=== PATIENT | female | born 1980 | race Caucasian/White ===

== ENCOUNTER 2017-10-30 10:51 | Inpatient (IN) | payer OTHER ==
[2017-10-30] MEDS ORDERED: ALTEPLASE 2 MG VIAL IVP PRN (15:05)
[2017-10-30] MEDS ORDERED: diphenhydrAMINE 25 MG CAP PO PRN (15:12)
[2017-10-30] MEDS ORDERED: SENNOSIDES/DOCUSATE SODIUM TAB PO PRN (15:12)
[2017-10-30] MEDS ORDERED: QUEtiapine FUMARATE 25 MG TAB PO PRN (15:12)
[2017-10-30] MEDS ORDERED: SIMETHICONE 80 MG TAB CHEW PO PRN (15:12)
[2017-10-30] MEDS ORDERED: guaiFENesin 200 MG TAB PO PRN (15:12)
[2017-10-30] MEDS ORDERED: SODIUM CL NASAL 45 ML BTL NS PRN (15:12)
[2017-10-30] MEDS ORDERED: BIOTENE DRY MOUTH ORAL RINSE 237 ML BTL MM PRN ×2 (15:12→15:50)
--- NOTE | 2017-10-30 17:26 | GHP ---
[f rep st] HISTORY AND PHYSICAL POST ADMISSION PHYSICIAN EVALUATION AND REHABILITATION TREATMENT PLAN DATE OF ADMISSION: 10/30/2017 DATE OF EVALUATION: 10/30/2017. TIME OF EVALUATION: 1530. REFERRING FACILITY: [facility] IMPAIRMENT GROUP: [id number]. REFERRING PHYSICIAN: Dr. Barajas CONSULTING PHYSICIANS: She was seen by General Surgery, Palliative Care, Pulmonary Critical Care, Thoracic Surgery, Infectious Disease, Cardiac Surgery, Gastroenterology, Nephrology, Interventional Radiology, and Behavioral Health. REHABILITATION DIAGNOSIS: Debility status post respiratory failure and adult respiratory distress syndrome. ETIOLOGIC DIAGNOSIS: Debility (noncardiac, nonpulmonary). CLAIRE OF ONSET: 09/09/2017. DATE OF SURGERY: 09/09/2017. HISTORY OF PRESENT ILLNESS: This is a 37-year-old woman who was admitted to [facility] on 09/09/2017 with worsening respiratory symptoms for a week. She had acute respiratory failure with pneumonia and ARDS bilaterally in the lower lungs. She was positive for influenza B. she was taken to the intensive care unit and intubated and treated for shock. She continued to decompensate and was transferred to [facility] where she had ECMO. There, she remained in the ICU from 09/09 to 10/08 and then again from 10/09 to 10/21. She was treated for sepsis, extensive subcutaneous emphysema, acute kidney injury requiring dialysis, which has resolved, and necrotizing MRSA pneumonia. She had a thoracotomy on 09/18/2017. There were recurrent bilateral pneumothoraces requiring bilateral chest tubes, which were placed on 10/09/2017. She had a tracheostomy placed on 09/23/2017, and then she was decannulated on 10/21/2017. There was a PEG tube. The ECMO was discontinued on 09/21/2017. There was anemia and myopathy of critical illness. There was sinus tachycardia, which was treated with metoprolol. She had preexisting PTSD and had symptoms of anxiety and insomnia, for which there was a Behavioral Health consult. 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 She had an IV which infiltrated in the right upper extremity. It required debridement on 10/28/2017. STUDIES AND LABS IN THE HOSPITAL: She had many chest x-rays and chest CTs. Most recent chest CT on 10/28 showed a persistent moderate left pneumothorax which communicates with a complex multiloculated cavity in the anterior interior left hemithorax; not clear if it was pleural or lung in origin, but there was a suspected bronchopleural fistula. CT also showed a 10 cm loculated low-attenuation probable multiloculated fluid collection, which was stable or decreased in size, multifocal atelectasis and confluent opacities consistent with multifocal bronchiectasis and small cavities which were improving, and, finally, scattered ground-glass attenuation opacities which were also improving. MOST RECENT LABORATORY STUDIES: On 10/30/2017, she continued to have anemia with a hemoglobin of 7.9 and hematocrit of 25.4. Platelet count was 216. She did not have elevated white blood cell count. Last basic metabolic profile on 10/29/2017, showed slightly high sodium at 146, slightly low potassium at 3.1, an elevated CO2 at 30. Otherwise, renal function and electrolytes were overall unremarkable, but for a low creatinine at 0.57. OTHER LABS AND STUDIES: She was not iron deficient, and she had a high reticulocyte count on 10/18/2017. On 09/13/2017, her TSH was normal at 1.62. She had IgG and IgA tested on 10/06/2016, and these were normal. On 09/09, her sputum culture grew MRSA. On 10/01, bronchoalveolar lavage was positive for influenza B and MRSA. Blood cultures were negative. PRECAUTIONS: She has aspiration precautions. She has contact isolation precautions for MRSA. ACTIVE COMORBIDITIES: She has the active comorbidity of a tracheostomy which is healing, which is a tier 1 comorbidity. She has the tier 3 comorbidity of MRSA. PAST MEDICAL HISTORY: She has no history of any prior medical illnesses. PAST SURGICAL HISTORY: She has had C-sections x2. PRE-HOSPITAL MEDICATIONS: She was taking buspirone and bupropion. ADMISSION MEDICATIONS: 1. Acetaminophen 650 mg p.o. q.6 hours p.r.n. 2. Alteplase 2 mg IV push p.r.n. PICC line clogging. 3. Budesonide 0.5 mg inhalation twice daily. 4. Bupropion 225 mg p.o. twice daily. 5. Buspirone 30 mg p.o. daily. 6. Calcium carbonate 1000 mg p.o. daily. 7. Clonidine 0.05 mg p.o. at bedtime. 8. Collagenase to the right antecubital skin wound 1 application topical with dressing changes. 9. Diphenhydramine 25 mg p.o. q.8 hours p.r.n. itching. 10. Famotidine 20 mg p.o. twice daily p.r.n. heartburn. 11. Guaifenesin 200 mg p.o. q.4 hours p.r.n. cough. 12. Levalbuterol 1.25 mg inhalation three times daily. 13. Melatonin 9 mg p.o. at bedtime. 14. Metoprolol 12.5 mg p.o. twice daily. 15. Multivitamin 1 p.o. daily. 16. Oxycodone 5 mg p.o. q.4 hours p.r.n. 17. Quetiapine 100 mg p.o. at bedtime and 25 mg p.o. at bedtime p.r.n. insomnia. 18. Saliva substitute 15 mL four times daily p.r.n. dry mouth. 19. Senna/docusate 1 tab p.o. twice daily p.r.n. constipation. 20. Simethicone 80 mg p.o. q.6 hours p.r.n. gas or bloating. 21. Sodium chloride nasal spray p.r.n. dry nose. 22. Vancomycin 1 g IV q.12 hours. 23. Enoxaparin 40 mg subcutaneous daily. ALLERGIES: Listed to cefepime, clindamycin, and latex. PSYCHOSOCIAL HISTORY: She is . She lives with her . 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 There are stairs in the house. She has assistance from her parents, as well. FAMILY HISTORY: Noncontributory. REVIEW OF SYSTEMS: She has a cough. It is productive. It is intermittent. She does not feel dyspneic. She notes that her voice has changed and is softer than what it used to be. She still has a tracheostomy, though it is healing. She is not in pain. She sleeps well with her current medications. Sleep was disturbed for quite a while in the hospital due to multiple interruptions for cares, labs, etc. She has an improving appetite. She denies nausea, vomiting, constipation, or diarrhea. She denies dysuria or urinary frequency. She denies joint pain or joint swelling. She is not aware of skin rash or skin breakdown, though she has had some skin irritation from tape. She is in good spirits. She denies fevers or chills. Otherwise, a 10-point review of systems is negative. PHYSICAL EXAM: VITAL SIGNS: Blood pressure is 114/74, heart rate is 91, respiratory rate is 17, oxygenation is 99% on 3 L. Her weight is 67.8 kg for a body mass index of 26.5. GENERAL: This is a well-nourished, well-developed woman, sitting in a wheelchair, dressed in street clothes, cooperative, and in no acute distress. HEENT: Extraocular movements are intact. Pupils are equal , round, and reactive to light. Mucous membranes are moist. Dentition is in good condition. She has an uncrowded airway, Mallampati class 1. NECK: Supple. There is approximately half a centimeter tracheostomy with moderate amount of mucus on the dressing, and, occasionally, her exhalations happen through the tracheostomy, but not consistently. HEART: There is a regular rate and rhythm with no murmurs, rubs, or gallops. LUNGS: Overall clear to auscultation bilaterally, but she has few crackles in the left lower lobe. ABDOMEN: Soft, nontender, nondistended with normoactive bowel sounds and no hepatosplenomegaly. EXTREMITIES: There is no cyanosis, clubbing, or edema. NEUROLOGIC: She is alert and oriented x3. Cranial nerves 2-12 are grossly intact. There is no focal weakness. Sensation is intact to light touch. She is able to arise independently from the chair and maintains a slightly widened stance. Gait was not tested. CURRENT LEVEL OF FUNCTION per the pre-admission screen: Regarding diet, feeding , and swallowing, she was on a regular diet with thin liquids. She is independent with eating, and she had safe swallow strategies and precautions in place. Regarding grooming, she required supervision and voice cues, standing at the sink with modified independence. She needed assist for a hair clip on the back of her head. Dressing lower body required moderate assistance for shoes and socks. Toileting required minimal assistance and voice cues from a low toilet and the use of grab bars and contact guard assist for balance. Bed mobility required supervision and setup. Transfers were done with modified independence. She used a front-wheeled walker and a raised toilet seat. Balance required contact guard to minimal assist, and with dynamic balance changes, she required minimal to moderate assist. Endurance was fair. She needed frequent rest breaks and had increased oxygen need with activity. Regarding gait, she was able to ambulate 150 feet x2 with one seated rest. She was also able to ambulate 400 feet with minimal assist and no device. She was noted to have a reduced or absent heel strike and toe off. She had some loss of balance with turns. She was able to negotiate 2 steps with a hand rail. Regarding cognition, she was noted to need repetition for new learning. She was considered to be a high fall risk due to severely deconditioned state. IMPRESSION: This is a 37-year-old woman who has had a month and a half long hospitalization for complications of influenza B including adult respiratory distress syndrome and methicillin-resistant Staphylococcus aureus pneumonia. She required ventilation, for which she received a tracheostomy. She had ECMO for part of her hospital stay, but was eventually extubated and had sufficient recovery to be free of the ECMO. She continues to require approximately 3 L of oxygen at rest. She had renal failure and had dialysis for a period. She had pneumothoraces and continues to have a Heimlich valve for a persistent left pneumothorax and likely bronchopleural fistula. She had increased anxiety and insomnia and had the addition of quetiapine and melatonin for sleep. She had sepsis. She was eventually medically stabilized and is ready for inpatient rehabilitation to treat deficits to mobility, balance, and activities of daily living. She is to continue IV vancomycin until followup with Infectious Disease , Dr. Jett, as well as Thoracic Surgery, with followup scheduled for 2017. She is to have a CT scan of the chest prior to followup with Thoracic Surgery. Weekly CBC, CMP, CRP, and vancomycin trough are to be faxed to Dr. Jett of Infectious Disease at [phone]. Her goal is to complete a rehabilitation stay and then return home with her family and supportive services. For a safe discharge, it is expected that she will achieve independence with grooming, dressing, and transfers, and modified independence for bed mobility and ambulation with the least restrictive device. She may continue to require supervision for pain, bathing versus assistance depending on her ability to bathe with the pigtail catheter and Heimlich valve in her chest. She will be weaned as much as possible from oxygen depending on her progress at rest and with activity. Ideally, her wound will be healed at discharge. She will have therapy with Physical Therapy and Occupational Therapy for 90 minutes per day per discipline for 5-7 days of the week. Her expected duration of stay is 5-7 days. It is anticipated that upon discharge, she will continue to benefit from home health services including nursing, a nurse's aide, occupational therapy, and physical therapy. PLAN: 1. Debility following prolonged hospitalization. PT and OT to optimize her mobility and activities of daily living toward independence with grooming, dressing, and transfers, and modified independence for bed mobility, and ambulation with the least restrictive device. 2. MRSA pneumonia. She has contact isolation precautions. She will continue vancomycin with weekly vancomycin trough, as well as CBC and CMP to be faxed to Infectious Disease, Dr. Jett at [phone]. Will order the studies for Thursday , 11/02/2017. 3. Pneumothorax and possible bronchopleural fistula. She is to follow up with thoracic surgeon, Dr. Karri Landon with a chest CT prior to her appointment on 11/12/2017. 4. Tachycardia, likely due to deconditioning plus possibly a component of anemia. Heart rate at rest appears to be adequately controlled with low-dose metoprolol. Continue metoprolol with a goal of weaning and discontinuing as her conditioning improves. 5. Anemia of chronic disease/critical illness. Follow CBC as ordered out of hospital. She has not been iron deficient. Expect her to have considerable improvement in the anemia over time. 6. Anxiety with history of PTSD. Continue Wellbutrin and buspirone, as well as nighttime dosing of clonidine and quetiapine. 7. Right antecubital fossa wound due to infiltrating IV. Continue wound care as ordered out of the hospital. Consider Wound Care consult if there are any complications or if it is not healing as expected. 8. Status post respiratory failure. She is on budesonide, as well as levalbuterol inhalers, and these will be continued. 9. Prophylaxis. She is young, and she is ambulating greater than 150 feet. She is no longer critically ill. Enoxaparin was ordered among her discharge medications from the hospital, but this will not be continued as she appears to be low risk at present. She also has famotidine ordered on a p.r.n. basis, and she requested to continue this due to intermittent symptoms of dyspepsia. Follow-up: Thoracic surgeon Dr. Karri Landon on 11/12/2017, with chest CT prior to her appointment. Follow-up with Infectious Disease Dr. Jett. /[id number]/MODL MTDD
[2017-10-30] MEDS: LEVALBUTEROL 1.25 MG/3 ML DEYVIAL IH SCH ×2 (18:12→21:17)
[2017-10-30] MEDS: ACETAMINOPHEN 325 MG TAB PO PRN (18:39)
[2017-10-30] MEDS: FAMOTIDINE 20 MG TAB PO PRN (18:40)
[2017-10-30] MEDS ORDERED: QUEtiapine FUMARATE 100 MG TAB PO SCH (21:00)
[2017-10-30] MEDS ORDERED: NORMAL SALINE IV SCH (21:00)
[2017-10-30] MEDS ORDERED: VANCOMYCIN HCL IV SCH (21:00)
[2017-10-30] MEDS: MELATONIN 3 MG TAB PO SCH (21:15)
[2017-10-30] MEDS: QUEtiapine FUMARATE 25 MG TAB PO SCH (21:15)
[2017-10-30] MEDS: METOPROLOL TARTRATE 25 MG TAB PO SCH (21:16)
[2017-10-30] MEDS: VANCOMYCIN HCL/NORMAL SALINE 250 ML IV SCH (21:17)
[2017-10-30] MEDS: oxyCODONE IR 5 MG TAB PO PRN (21:31)
[2017-10-30] MEDS: BUDESONIDE 0.5 MG/2 ML AMPUL.NEB IH SCH (22:29)
[2017-10-30] MEDS: buPROPion 75 MG TAB PO SCH (22:29)
[2017-10-30] MEDS ORDERED: ONDANSETRON DISINTEGRATING 4 MG TAB PO PRN (23:58)
[2017-10-31] MEDS: ACETAMINOPHEN 325 MG TAB PO PRN ×2 (07:15→17:41)
[2017-10-31] MEDS: oxyCODONE IR 5 MG TAB PO PRN ×2 (07:16→17:41)
[2017-10-31] MEDS: LEVALBUTEROL 1.25 MG/3 ML DEYVIAL IH SCH ×3 (08:53→21:45)
[2017-10-31] MEDS: BUDESONIDE 0.5 MG/2 ML AMPUL.NEB IH SCH ×2 (08:56→21:29)
[2017-10-31] MEDS: METOPROLOL TARTRATE 25 MG TAB PO SCH ×2 (08:57→21:25)
[2017-10-31] MEDS: MULTIVITAMINS 1 EACH TAB PO SCH (08:57)
[2017-10-31] MEDS: CALCIUM CARBONATE 500 MG CHEWABLE TAB PO SCH (08:57)
[2017-10-31] MEDS: busPIRone 15 MG TAB PO SCH (08:57)
[2017-10-31] MEDS: buPROPion 75 MG TAB PO SCH ×2 (08:58→21:22)
[2017-10-31] MEDS ORDERED: ENOXAPARIN 40 MG/0.4 ML SYR SC SCH (09:00)
[2017-10-31] MEDS ORDERED: BUSPIRONE HCL 30 MG PO SCH (09:00)
[2017-10-31 09:20] LABS: PLATELET COUNT 231 10^3/uL (150-400)
[2017-10-31] MEDS: VANCOMYCIN HCL/NORMAL SALINE 250 ML IV SCH ×2 (10:08→21:45)
--- NOTE | 2017-10-31 13:55 | SOAPPROG ---
SOAP Progress Note Assessment/Plan: Assessment: 37 YO Woman with severe debility 2/2 prolonged acute care hospitalization with multiple medical problems, including respiratory failure, pneumonia, ARDS, pneumothorax, JAVAD, sepsis. Admitted to rehab 10/30/17. # Debility: initiate multidisciplinary evaluation and treatment. See Dr Valdez' s initial treatment plan. # MRSA Pneumonia: Cont isolation precautions, cont Vanco. Vanco trough 18. WBC 7.4 # Tracheostomy: pencil tip size opening remains. Cont dressing changes, wound care, with goal to minimize air leak. # Pneumothorax/Bronchial Fistula: Cont hemlock valve # Tachycardia: Controlled on B-aubrey, HR 89. wean over time. # Anemia of Chronic illness: H/H 7.9/26.8 Cont to monitor # Anxiety/PTSD: Cont current meds, reassurance, counseling # R Anti-cubital fossa wound: 2/2 IV infiltrate, healing, cont dressing changes , as per wound care orders. # B heal cord contractures: progress standing time, ambulation. # PPX: off anti-coagulants 2/[address] Valdez, Cont PRN famotidine. Plan: See Dr Valdez's rehab treatment plan. 10/31/17 15:52 Subjective: Anxious Denies F/C/CP/SOB/N/V/D/C Family at bedside Objective: Vital Signs Temp Pulse Resp BP Pulse Ox 36.8 C 89 14 114/73 93 10/31/17 06:26 10/31/17 08:57 10/31/17 06:26 10/31/17 08:57 10/31/17 06:26 Laboratory Results 10/31/17 06:00 10/31/17 06:00 10/30/17 10/31/17 11/01/17 05:59 05:59 05:59 Intake Total 1205 Output Total 3710 900 Balance -116 -483 - Time Spent With Patient Time Spent With Patient: 45 minutes spent with patient, face to face - Pending Discharge Pending Discharge Within 24 Hours: No Pending Discharge Within 48 Hours: No Physical Exam - Physical Exam General Appearance: alert, mild distress (anxiety), anxiety EENT: other (Tracheostomy, thick secretions. Cleaned and redressed per MD and RN ) Neck: supple Respiratory: decreased breath sounds (L base), stridor (end expiratory), No crackles, No rales, No rhonchi Cardiac/Chest: regular rate, rhythm Skin: normal color, warm/dry, other (R anticubital wound large with yellow fibrinous necrotic base, exposed vein, invaginating margins. cleaded and redressed per MD and RN) Extremities: No pedal edema Neuro/Psych: alert, normal mood/affect, oriented x 3, abnormal gait (tight heel cords), motor weakness (generalized), other (no acute changes), No cognition abnormalities ICD10 Worksheet Patient Problems: Problems Problem Status Onset Pneumonia Acute - ICD10 Problem Qualifiers (1) Pneumonia
[2017-10-31] MEDS: COLLAGENASE 30 GM OINTMENT TP SCH (15:38)
[2017-10-31] MEDS: FAMOTIDINE 20 MG TAB PO PRN (18:49)
[2017-10-31] MEDS: MELATONIN 3 MG TAB PO SCH (21:24)
[2017-10-31] MEDS: QUEtiapine FUMARATE 25 MG TAB PO SCH (21:24)
[2017-11-01 08:28] LABS: PLATELET COUNT 218 10^3/uL (150-400)
[2017-11-01] MEDS: VANCOMYCIN HCL/NORMAL SALINE 250 ML IV SCH ×2 (09:24→21:09)
[2017-11-01] MEDS: METOPROLOL TARTRATE 25 MG TAB PO SCH ×2 (09:24→20:32)
[2017-11-01] MEDS: CALCIUM CARBONATE 500 MG CHEWABLE TAB PO SCH (09:24)
[2017-11-01] MEDS: buPROPion 75 MG TAB PO SCH ×2 (09:24→15:33)
[2017-11-01] MEDS: MULTIVITAMINS 1 EACH TAB PO SCH (09:25)
[2017-11-01] MEDS: busPIRone 15 MG TAB PO SCH (09:27)
[2017-11-01] MEDS: LEVALBUTEROL 1.25 MG/3 ML DEYVIAL IH SCH ×3 (09:27→21:10)
[2017-11-01] MEDS: BUDESONIDE 0.5 MG/2 ML AMPUL.NEB IH SCH ×2 (10:00→20:33)
[2017-11-01] MEDS: COLLAGENASE 30 GM OINTMENT TP SCH (10:53)
[2017-11-01] MEDS: ACETAMINOPHEN 325 MG TAB PO PRN (10:57)
--- NOTE | 2017-11-01 11:33 | SOAPPROG ---
SOAP Progress Note Assessment/Plan: Assessment: 37 YO Woman with severe debility 2/2 prolonged acute care hospitalization with multiple medical problems, including respiratory failure, pneumonia, ARDS, pneumothorax, JAVAD, sepsis. Admitted to rehab 10/30/17. # Debility: initiate multidisciplinary evaluation and treatment. See Dr Valdez' s initial treatment plan. Tolerating therapies. # MRSA Pneumonia: Cont isolation precautions, cont Vanco. Vanco trough 18 on , WBC 7.4 # Tracheostomy: pencil tip size opening remains. Cont dressing changes, wound care, with goal to minimize air leak. # Pneumothorax/Bronchial Fistula: Cont hemlock valve. # Tachycardia: Controlled on B-aubrey, HR 89. wean over time. # Anemia of Chronic illness: H/H 7.9/26.8 Cont to monitor # Anxiety/PTSD: Cont current meds, reassurance, counseling # R Anti-cubital fossa wound: 2/2 IV infiltrate, healing, cont dressing changes , as per wound care orders. # B heal cord contractures: progress standing time, ambulation. # PPX: off anti-coagulants 2/[address] Valdez, Cont PRN famotidine. Plan: See Dr Valdez's rehab treatment plan. 11/01/17 11:29 Subjective: Slightly less anxious Slept fair R elbow wound started hurting about one hour before dressing change. No F/C/CP/SOB/N/V/D Objective: Vital Signs Temp Pulse Resp BP Pulse Ox 36.8 C 94 16 124/73 H 93 11/01/17 06:23 11/01/17 09:24 11/01/17 06:23 11/01/17 09:24 11/01/17 06:23 Laboratory Results 11/01/17 06:20 11/01/17 06:20 10/31/17 11/01/17 11/02/17 05:59 05:59 05:59 Intake Total 1205 1630 Output Total 1900 2300 300 Balance -318 -968 -300 Physical Exam - Physical Exam General Appearance: alert, anxiety Neck: supple Respiratory: lungs clear, stridor (L side, end expiration, slight) Cardiac/Chest: regular rate, rhythm, other (ostomy site for chest tube CD&I) Abdomen: normal bowel sounds, soft Skin: normal color, warm/dry, other (Large wound in R anti-cubital fossa, with errythematous invaginating margins, fibrinous base, visible vein. no purulence, no odor. Redressed per MD as per wound care orders.) Extremities: No pedal edema, No calf tenderness Neuro/Psych: alert, normal mood/affect, oriented x 3 ICD10 Worksheet Patient Problems: Problems Problem Status Onset Pneumonia Acute - ICD10 Problem Qualifiers (1) Pneumonia
[2017-11-01] MEDS: FAMOTIDINE 20 MG TAB PO PRN (17:18)
[2017-11-01] MEDS: oxyCODONE IR 5 MG TAB PO PRN ×2 (17:18→22:14)
[2017-11-01] MEDS: MELATONIN 3 MG TAB PO SCH (20:30)
[2017-11-01] MEDS: QUEtiapine FUMARATE 25 MG TAB PO SCH (20:33)
[2017-11-02 08:29] LABS: PLATELET COUNT 222 10^3/uL (150-400)
[2017-11-02] MEDS: VANCOMYCIN HCL/NORMAL SALINE 250 ML IV SCH ×2 (08:46→21:22)
[2017-11-02] MEDS: buPROPion 75 MG TAB PO SCH ×2 (08:46→14:26)
[2017-11-02] MEDS: busPIRone 15 MG TAB PO SCH (08:59)
[2017-11-02] MEDS: CALCIUM CARBONATE 500 MG CHEWABLE TAB PO SCH (08:59)
[2017-11-02] MEDS: MULTIVITAMINS 1 EACH TAB PO SCH (09:00)
[2017-11-02] MEDS: METOPROLOL TARTRATE 25 MG TAB PO SCH ×2 (09:07→21:33)
--- NOTE | 2017-11-02 09:23 | SOAPPROG ---
SOAP Progress Note Assessment/Plan: Assessment: * Debility following prolonged hospitalization. * Has advanced to independent in her room as of 11/02/2017. * PT and OT to optimize her mobility and activities of daily living toward independence with grooming, dressing, and transfers, and modified independence for bed mobility, and ambulation with the least restrictive device. * MRSA pneumonia. She has contact isolation precautions. She will continue vancomycin with weekly vancomycin trough, as well as CBC and CMP to be faxed to Infectious Disease, Dr. Jett at [phone]. Labs Q Thursday. 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 She is to follow up with thoracic surgeon, Dr. Karri Landon with a chest CT prior to her appointment on 11/12/2017. * Tachycardia, likely due to deconditioning plus possibly a component of anemia. Heart rate at rest appears to be adequately controlled with low-dose metoprolol. Continue metoprolol with a goal of weaning and discontinuing as her conditioning improves. * Anemia of chronic disease/critical illness. Stable. She has not been iron deficient. Recheck CBC weekly. * Anxiety with history of PTSD. Continue Wellbutrin and buspirone, as well as nighttime dosing of clonidine and quetiapine. * Right antecubital fossa wound due to infiltrating IV. Continue wound care as ordered out of the hospital. Wound Care consult regarding slough at wound bed and to optimize management. * Status post respiratory failure. She is on budesonide, as well as levalbuterol inhalers, and these will be continued. * Prophylaxis. She is young, and she is ambulating greater than 150 feet. She is no longer critically ill. Enoxaparin was ordered among her discharge medications from the hospital, but this will not be continued as she appears to be low risk at present. She also has famotidine ordered on a p.r.n. basis, and she requested to continue this due to intermittent symptoms of dyspepsia. Follow-up: Thoracic surgeon Dr. Karri Landon on 11/12/2017, with chest CT prior to her appointment. Follow-up with Infectious Disease Dr. Jett on 2017. 11/02/17 12:10 Subjective: Complains of pain in the right upper extremity. She is concerned that the bandage over her antecubital wound is too tight. She also notices some skin irritation around the edge of the bandage. Otherwis without complaints. Sleeping well, no cough or dyspnea, no fevers or chills. Objective: Vital Signs Temp Pulse Resp BP Pulse Ox 36.6 C 107 H 18 127/79 H 96 11/02/17 09:01 11/02/17 09:01 11/02/17 09:01 11/02/17 09:01 11/01/17 18:28 Laboratory Results 11/02/17 06:00 11/01/17 11/02/17 11/03/17 05:59 05:59 05:59 Intake Total 1630 1060 Output Total 2300 1400 500 Balance -670 -340 -500 Physical Exam - Physical Exam General Appearance: WD/WN, alert, no apparent distress Respiratory: normal breath sounds, crackles (LLL), pleural rub (+/-, LLL), No rhonchi, No wheezing Cardiac/Chest: No edema Skin: normal color, warm/dry, other (Of observed dressing change, right antecubital fossa. Wound approximately 3 x 3 cm with vein visible in Center. The wound bed is yellow slough. No faith-wound erythema, no purulence, no swelling.) Neuro/Psych: no motor/sensory deficits, alert, normal mood/affect, oriented x 3 ICD10 Worksheet Patient Problems: Problems Problem Status Onset Pneumonia Acute
[2017-11-02] MEDS: ACETAMINOPHEN 325 MG TAB PO PRN ×2 (09:57→19:39)
[2017-11-02] MEDS: COLLAGENASE 30 GM OINTMENT TP SCH ×2 (11:48→12:06)
[2017-11-02] MEDS: BUDESONIDE 0.5 MG/2 ML AMPUL.NEB IH SCH ×2 (11:48→21:32)
--- NOTE | 2017-11-02 12:04 | PDOREHIP ---
Admission [facility] - Admission - 3 Day Assessment Period Admission Date/Day 1: 10/30/17 Day 2: 10/31/17 Day 3: 11/01/17 - Active Diagnoses Comorbidities and Co-existing Conditions at Admission: 74049. None of the Above - Skin Conditions Unhealed Pressure Ulcer (1 or more/Stage 1 or >)-Admission: 0. No
[2017-11-02] MEDS: MAGNESIUM OXIDE 400 MG TAB PO SCH ×2 (12:11→21:34)
[2017-11-02] MEDS: POTASSIUM CL 20 MEQ TAB PO SCH ×2 (12:11→21:35)
[2017-11-02] MEDS: LEVALBUTEROL 1.25 MG/3 ML DEYVIAL IH SCH ×3 (16:13→22:06)
[2017-11-02] MEDS: FAMOTIDINE 20 MG TAB PO PRN (20:35)
[2017-11-02] MEDS: MELATONIN 3 MG TAB PO SCH (21:35)
[2017-11-02] MEDS: QUEtiapine FUMARATE 25 MG TAB PO SCH (21:37)
[2017-11-03] MEDS: buPROPion 75 MG TAB PO SCH ×2 (07:57→14:50)
[2017-11-03] MEDS: MAGNESIUM OXIDE 400 MG TAB PO SCH ×2 (08:53→21:53)
[2017-11-03] MEDS: MULTIVITAMINS 1 EACH TAB PO SCH (08:53)
[2017-11-03] MEDS: busPIRone 15 MG TAB PO SCH (08:54)
[2017-11-03] MEDS: LEVALBUTEROL 1.25 MG/3 ML DEYVIAL IH SCH ×3 (09:13→22:07)
[2017-11-03] MEDS: VANCOMYCIN HCL/NORMAL SALINE 250 ML IV SCH ×2 (09:19→22:01)
--- NOTE | 2017-11-03 09:40 | WOCRNPDOC ---
WOCRN Advanced Assessment Note - Skin Integrity Problem, Advanced Assess Right Invasive Line Site Dressing Type: Gauze, Xeroform Dressing Description: Clean/Dry, Intact Exudate Amount: None Integumentary Issue Intervention: Dressing Changed Enriqueta Wound Tissue: Erythema, Painful/Tender Enriqueta Wound Swelling: Moderate Wound Bed Color: Purple, Yellow Wound Bed Constitution: Smooth Tissue (40% vein), Subcutaneous Fat (50%), Mixed Loose & Adhered Slough/Eschar (10%) Wound Edges: Attached, Not Attached, Epibole, Well Defined Site Odor: None Site Measurement - Head-to-Toe Length X Width X Depth (cm): 2.5x2.9x0.6 Skin Integrity Problem Comment: Discussing plan with Dr. Smith who would like to see patient in outpatient general surgery office. Wound appears stalled and non healing. D/C Santyl at this time. Wound needs to be kept moist so the fatty tissue does not continue to necrose. Covered wound bed with xeroform then telfa after flushing with ns. Secured with kerlix. Radha RN in room for care. Patient somewhat tearful and nervous about pain and her wound in general. Explained that Dr. Smith may need to further debride the area or that she may decide to graft the area or both but that Dr. Smith is very capable and will go through all of the options with her. As patient is D/Cing on wound care will sign off. If patient stays past please reconsult wound RN.
[2017-11-03] MEDS: CALCIUM CARBONATE 500 MG CHEWABLE TAB PO SCH (10:12)
[2017-11-03] MEDS: BUDESONIDE 0.5 MG/2 ML AMPUL.NEB IH SCH ×2 (10:12→21:56)
[2017-11-03] MEDS: COLLAGENASE 30 GM OINTMENT TP SCH (10:15)
[2017-11-03] MEDS: METOPROLOL TARTRATE 25 MG TAB PO SCH ×2 (10:15→21:49)
[2017-11-03] MEDS: POTASSIUM CL 20 MEQ TAB PO SCH ×2 (10:16→21:54)
[2017-11-03] MEDS: ACETAMINOPHEN 325 MG TAB PO PRN (14:50)
--- NOTE | 2017-11-03 14:50 | SOAPPROG ---
SOAP Progress Note Assessment/Plan: Assessment: * Debility following prolonged hospitalization. * Has advanced to independent in her room as of 11/02/2017. * PT and OT to optimize her mobility and activities of daily living toward independence with grooming, dressing, and transfers, and modified independence for bed mobility, and ambulation with the least restrictive device. * MRSA pneumonia. She has contact isolation precautions. She will continue vancomycin with weekly vancomycin trough, as well as CBC and CMP to be faxed to Infectious Disease, Dr. Jett at [phone]. Labs Q Thursday. * Right antecubital fossa wound due to infiltrating IV. * Seen by wound care nurse today, 11/03/2017. Wound is stalled with no continued healing. Wound nurse discontinued collagenase. Will arrange follow-up with surgeon Dr. [facility] for possible debridement. 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 She is to follow up with thoracic surgeon, Dr. Karri Landon with a chest CT prior to her appointment on 11/12/2017. * Respiratory status is improving though abnormal lung exam persists. * Tachycardia, likely due to deconditioning plus possibly a component of anemia. Heart rate at rest appears to be adequately controlled with low-dose metoprolol. Continue metoprolol with a goal of weaning and discontinuing as her conditioning improves. * Anemia of chronic disease/critical illness. Stable. She has not been iron deficient. Recheck CBC weekly. * Anxiety with history of PTSD. Continue Wellbutrin and buspirone, as well as nighttime dosing of clonidine and quetiapine. * Status post respiratory failure. She is on budesonide, as well as levalbuterol inhalers, and these will be continued. * Prophylaxis. She is young, and she is ambulating greater than 150 feet. She is no longer critically ill. Enoxaparin was ordered among her discharge medications from the hospital, but this will not be continued as she appears to be low risk at present. She also has famotidine ordered on a p.r.n. basis, and she requested to continue this due to intermittent symptoms of dyspepsia. Follow-up: Thoracic surgeon Dr. Karri Landon on 11/12/2017, with chest CT prior to her appointment. Follow-up with Infectious Disease Dr. Jett on 2017. Follow-up with surgeon Dr. Cody for wound debridement after discharge. 11/03/17 14:47 Subjective: No complaints. Reports that she no longer needs extra oxygen when she's active with therapies. Not in pain, no fevers or chills, no cough or dyspnea. Objective: Vital Signs Temp Pulse Resp BP Pulse Ox 36.5 C 100 16 118/79 93 11/03/17 06:15 11/03/17 10:15 11/03/17 06:15 11/03/17 10:15 11/03/17 06:15 Laboratory Results 11/02/17 06:00 11/02/17 06:00 11/02/17 11/03/17 11/04/17 05:59 05:59 05:59 Intake Total 1060 1000 590 Output Total 1400 2200 1000 Balance -340 -1200 -410 Physical Exam - Physical Exam General Appearance: WD/WN, alert, no apparent distress Respiratory: normal breath sounds, rhonchi (Ronchi +/- rub LLL), No crackles, No wheezing Skin: normal color, warm/dry Neuro/Psych: no motor/sensory deficits, alert, normal mood/affect, oriented x 3 ICD10 Worksheet Patient Problems: Problems Problem Status Onset Pneumonia Acute
[2017-11-03] MEDS: FAMOTIDINE 20 MG TAB PO PRN (19:43)
[2017-11-03] MEDS: MELATONIN 3 MG TAB PO SCH (21:53)
[2017-11-03] MEDS: QUEtiapine FUMARATE 25 MG TAB PO SCH (21:54)
[2017-11-04] MEDS: busPIRone 15 MG TAB PO SCH (09:14)
[2017-11-04] MEDS: LEVALBUTEROL 1.25 MG/3 ML DEYVIAL IH SCH ×2 (09:14→16:56)
[2017-11-04] MEDS: buPROPion 75 MG TAB PO SCH ×2 (09:15→17:01)
[2017-11-04] MEDS: MULTIVITAMINS 1 EACH TAB PO SCH (09:16)
[2017-11-04] MEDS: BUDESONIDE 0.5 MG/2 ML AMPUL.NEB IH SCH (09:16)
[2017-11-04] MEDS: MAGNESIUM OXIDE 400 MG TAB PO SCH ×2 (09:16→22:01)
[2017-11-04] MEDS: CALCIUM CARBONATE 500 MG CHEWABLE TAB PO SCH (09:16)
[2017-11-04] MEDS: VANCOMYCIN HCL/NORMAL SALINE 250 ML IV SCH ×2 (09:17→21:08)
[2017-11-04] MEDS: METOPROLOL TARTRATE 25 MG TAB PO SCH ×2 (09:17→21:59)
[2017-11-04] MEDS: POTASSIUM CL 20 MEQ TAB PO SCH ×2 (09:17→22:01)
[2017-11-04] MEDS: COLLAGENASE 30 GM OINTMENT TP SCH (09:37)
[2017-11-04] MEDS ORDERED: PANTOPRAZOLE SODIUM 40 MG TAB PO ONE (17:18)
[2017-11-04] MEDS ORDERED: ALBUTEROL 60 PUFFS/8 GM MDI IH PRN (17:22)
--- NOTE | 2017-11-04 17:46 | PDOREHIP ---
Admission [facility] - Admission - 3 Day Assessment Period Admission Date/Day 1: 10/30/17 Day 2: 10/31/17 Day 3: 11/01/17 Discharge [facility] - Discharge - 3 Day Assessment Period 2 Days Prior to Anticipated Discharge Date: 11/03/17 1 Day Prior to Anticipated Discharge Date: 11/04/17 Anticipated Discharge Date: 11/05/17 - Discharge Skin Conditions Unhealed Pressure Ulcer (1 or more/Stage 1 or >)-Discharge: 0. No
--- NOTE | 2017-11-04 17:50 | SOAPPROG ---
SOAP Progress Note Assessment/Plan: Assessment: * Debility following prolonged hospitalization. * Functional independence measure 111 on 11/04/2017. Has advanced to independent in her room as of 11/02/2017. Has essentially met all goals regarding mobility though continues to have tight heel cords. Requires 2 L of oxygen with activity. Modified independence for ADLs. Dated sponge bath as she is not permitted to shower. * Continue PT and OT to optimize her mobility and activities of daily living toward independence with grooming, dressing, and transfers, and modified independence for bed mobility, and ambulation with the least restrictive device. * MRSA pneumonia. She has contact isolation precautions. She will continue vancomycin with weekly vancomycin trough, as well as CBC and CMP to be faxed to Infectious Disease, Dr. Jett at [phone]. Labs Q Thursday. * Right antecubital fossa wound due to infiltrating IV. * Seen by wound care nurse 11/03/2017. Wound is stalled with no continued healing. Wound nurse discontinued collagenase. Will arrange follow-up with surgeon Dr. Damon [facility] for possible debridement. 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 She is to follow up with thoracic surgeon, Dr. Karri Landon with a chest CT prior to her appointment on 11/12/2017. * Respiratory status is improving though abnormal lung exam persists. * Tachycardia, likely due to deconditioning plus possibly a component of anemia. Heart rate at rest appears to be adequately controlled with low-dose metoprolol. Continue metoprolol with a goal of weaning and discontinuing as her conditioning improves. * Anemia of chronic disease/critical illness. Stable. She has not been iron deficient. Recheck CBC weekly. * Anxiety with history of PTSD. Continue Wellbutrin and buspirone, as well as nighttime dosing of clonidine and quetiapine. * Status post respiratory failure. Discussed with Dr. Roberto Carlos Neely, hospitalist who cared for her during part of her stay. Dr. Roberto Carlos Neely consulted with pulmonology. No need for scheduled view done is a night and levalbuterol nebulizers. Advise continuing albuterol on a p.r.n. Basis. * Prophylaxis. She is young, and she is ambulating greater than 150 feet. She is no longer critically ill. Enoxaparin was ordered among her discharge medications from the hospital, but this will not be continued as she appears to be low risk at present. She also has famotidine ordered on a p.r.n. basis, and she requested to continue this due to intermittent symptoms of dyspepsia. Follow-up: Thoracic surgeon Dr. Karri Landon on 11/12/2017, with chest CT prior to her appointment. Follow-up with Infectious Disease Dr. Jett on 2017. Follow up with pulmonology at [facility] on 11/12/2017, to be arranged by the pulmonology service. Follow-up with surgeon Dr. Damon for wound debridement after discharge. Attended staffing, 15 min. Discussed with case management, nursing, PT, OT, [employer]. Has extensive family support. Plan to discharge home tomorrow, 2017. Continue PT and OT. RN for antibiotic administration and wound care. 11/04/17 17:51 Subjective: No complaints today. Slept well. Has a cough which feels like it is due to a tickle in her throat. Brings up sputum maybe 5 times a day. No dyspnea. No fevers or chills. Later in the day complains of reflux symptoms, and reports that famotidine does not help. Denies sensation of postnasal drip or sinus congestion. Objective: Vital Signs Temp Pulse Resp BP Pulse Ox 36.7 C 110 H 16 111/65 87 L 11/04/17 06:20 11/04/17 12:22 11/04/17 06:20 11/04/17 09:17 11/04/17 12:27 Laboratory Results 11/02/17 06:00 11/02/17 06:00 11/03/17 11/04/17 11/05/17 05:59 05:59 05:59 Intake Total 1000 1048 60 Output Total 2200 1900 Balance -1200 -852 60 - Time Spent With Patient Time Spent With Patient: Greater than 35 min floor time today, including more than 50% of time in coordination of care during staffing meeting and phone discussion with hospitalist service from her hospitalization, and counseling patient. Physical Exam - Physical Exam General Appearance: WD/WN, alert, no apparent distress Respiratory: normal breath sounds, rhonchi (Left lower lobe), No crackles, No wheezing Cardiac/Chest: regular rate, rhythm, No diastolic murmur, No systolic murmur Skin: normal color, warm/dry Neuro/Psych: no motor/sensory deficits, alert, normal mood/affect, oriented x 3 ICD10 Worksheet Patient Problems: Problems Problem Status Onset Pneumonia Acute
[2017-11-04] MEDS ORDERED: MAG HYDROX/AL HYDROX/SIMETH 30 ML UDCUP PO PRN (21:10)
[2017-11-04] MEDS: QUEtiapine FUMARATE 25 MG TAB PO SCH (22:02)
[2017-11-04] MEDS: MELATONIN 3 MG TAB PO SCH (22:02)
[2017-11-05 06:40] VITALS: BP 105/76
[2017-11-05] MEDS: VANCOMYCIN HCL/NORMAL SALINE 250 ML IV SCH (07:29)
[2017-11-05] MEDS ORDERED: PANTOPRAZOLE SODIUM 40 MG TAB PO SCH (08:00)
[2017-11-05] MEDS: POTASSIUM CL 20 MEQ TAB PO SCH (08:51)
[2017-11-05] MEDS: MULTIVITAMINS 1 EACH TAB PO SCH (08:51)
[2017-11-05] MEDS: METOPROLOL TARTRATE 25 MG TAB PO SCH (08:51)
[2017-11-05] MEDS: busPIRone 15 MG TAB PO SCH (08:53)
[2017-11-05] MEDS: buPROPion 75 MG TAB PO SCH (08:54)
[2017-11-05] MEDS: MAGNESIUM OXIDE 400 MG TAB PO SCH (08:54)
[2017-11-05] MEDS: CALCIUM CARBONATE 500 MG CHEWABLE TAB PO SCH (08:55)
[2017-11-05] MEDS: COLLAGENASE 30 GM OINTMENT TP SCH (11:09)
--- NOTE | 2017-11-05 18:51 | GDS ---
[f rep st] DISCHARGE SUMMARY ADMITTING DIAGNOSIS: Debility, status post prolonged hospitalization for pneumonia. DISCHARGE DIAGNOSIS: Debility, status post prolonged hospitalization for pneumonia. OTHER DISCHARGE DIAGNOSES: 1. Methicillin-resistant Staphylococcus aureus pneumonia. 2. Right antecubital fossa wound. COMPLICATIONS: There were none. PROCEDURES: There were none. CONSULTATIONS: There were none. HISTORY AND HOSPITAL COURSE: This patient came to [facility] inpatient rehabilitation from [facility]. She had a prolonged course in the hospital. She was initially admitted with respiratory failure on 2017, and was diagnosed with influenza B. She subsequently suffered ARDS bilaterally in the lower lungs and developed MRSA necrotizing pneumonia. During part of her stay, she required extracorporeal membrane oxygenation. 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 She was decannulated regarding her tracheostomy on 10/21/2017. There had been PEG tube. She finally was medically stabilized and appropriate for inpatient rehabilitation. She had considerable improvement during her rehabilitation stay and quickly advanced to independent in her room as of 11/02/2017. She was continued on contact isolation for the MRSA pneumonia and continued vancomycin. Weekly vancomycin trough as well as CBC and BMP were determined on Mondays and faxed to Infectious Disease, Dr. Jett, at [phone]. Regarding her right antecubital wound which resulted from infiltration of an IV while she was hospitalized, she was seen in consultation by the wound nurse, who noted healing of the wound to be stalled. She had been treated with collagenase and this was discontinued and she will follow up with surgeon, Dr. Smith at the [facility] after discharge. She will likely need further debridement. She has anemia, which is not due to iron deficiency and is likely due to chronic disease. Her hemoglobin and hematocrit remained stable through her stay. On 11/02/2017, hemoglobin was 7.8 and hematocrit was 26.1. 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 History of tracheostomy. The mucosal layer sealed while she was at inpatient rehabilitation, though she continued to have a skin wound, which was healing well. DISCHARGE PLAN: Condition upon discharge is good. ACTIVITY: Ad mignon. She has met all goals regarding mobility. She needs 2 L of oxygen with activity. DIET: Regular. MEDICATIONS ON DISCHARGE: 1. Acetaminophen 650 mg p.o. q.6 hours p.r.n. 2. Albuterol 2 puffs q.4 hours p.r.n. 3. Alteplase 2 mg IV push p.r.n., but this will likely be supplied by the infusion company. 4. Bupropion 225 mg p.o. twice daily. 5. Buspirone 30 mg p.o. daily. 6. Calcium carbonate 500 mg p.o. daily. 7. Clonidine 0.05 mg p.o. at bedtime. 8. Famotidine 20 mg p.o. twice daily. 9. Guaifenesin 200 mg p.o. q.4 hours p.r.n. 10. Melatonin 9 mg p.o. at bedtime. 11. Metoprolol 12.5 mg p.o. twice daily. 12. Multivitamin p.o. daily. 13. Ondansetron 4 mg p.o. q.6 hours p.r.n. 14. Oxycodone 5 mg p.o. q.4 hours p.r.n. 15. Pantoprazole 40 mg p.o. daily. 16. Quetiapine 100 mg p.o. at bedtime scheduled and 25 mg p.o. at bedtime p.r.n. 17. Saliva substitute four times daily p.r.n. 18. Senna/docusate 1 p.o. twice daily p.r.n. 19. Sodium chloride nasal spray 2 sprays each naris p.r.n. 20. Vancomycin 1 g IV q.12 hours. ISSUES TO BE ADDRESSED AT FOLLOWUP: 1. MRSA pneumonia. She will follow up with Infectious Disease physician, Dr. Jett on 11/12/2017. 2. 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 She will follow up with thoracic surgeon, Dr. Karri Landon, on 11/12/2017. 3. Regarding the pneumonia, she will also see Pulmonology at [facility] on 11/12/2017. 4. Stalled wound right antecubital fossa. She will see Dr. Grace Smith on 04/2018. 5. Anxiety, treated with bupropion, buspirone, clonidine, and quetiapine. She can follow up with her primary care provider and consider referral to [facility] if she continues. This was well controlled during her stay on her current medications. 6. Functional status. She will continue to have PT and OT at home. Additionally, she will have a nurse visit for antibiotic administration and wound care. Copy requested to: Karri Jett Pulmonology Department [facility] /[id number]/MODL and [id number]/MODL MTDD
== END 2017-11-05 10:53 | disposition home or self-care (01) | DRG 177 ==
LOC: BREH 14:03
PROVIDERS: ADMIT Internal Medicine; ATTEND Internal Medicine
PROC: F07Z9FZ Gait Training/Functional Ambulation Treatment using Assistive, Adaptive, Supportive or Protective Equipment (ICD-10-PCS; principal; 2017-10-30)
PROC: F08Z1FZ Dressing Techniques Treatment using Assistive, Adaptive, Supportive or Protective Equipment (ICD-10-PCS; principal; 2017-10-30)
PROC: F07Z5FZ Bed Mobility Treatment using Assistive, Adaptive, Supportive or Protective Equipment (ICD-10-PCS; principal; 2017-10-30)
PROC: F07Z8FZ Transfer Training Treatment using Assistive, Adaptive, Supportive or Protective Equipment (ICD-10-PCS; principal; 2017-10-30)
PROC: F08Z2FZ Grooming/Personal Hygiene Treatment using Assistive, Adaptive, Supportive or Protective Equipment (ICD-10-PCS; principal; 2017-10-30)
DX: J15.212 Pneumonia due to Methicillin resistant Staphylococcus aureus (principal); J86.0 Pyothorax with fistula; Z93.0 Tracheostomy status; D64.9 Anemia, unspecified; T82.898D Other specified complication of vascular prosthetic devices, implants and grafts, subsequent encounter; L89.019 Pressure ulcer of right elbow, unspecified stage; F41.8 Other specified anxiety disorders; F43.12 Post-traumatic stress disorder, chronic; R00.0 Tachycardia, unspecified; Z87.09 Personal history of other diseases of the respiratory system; Z92.81 Personal history of extracorporeal membrane oxygenation (ECMO); F41.9 Anxiety disorder, unspecified; F43.10 Post-traumatic stress disorder, unspecified
CPT/HCPCS: 97110-GO; 97110-GP; 97116-GP; 97140-GP; 97162-GP; 97166-GO; 97530-GO; 97530-GP; 97535-GO; G0515-GO; J3370; J7626